=== PATIENT | female | born 1955 | race Caucasian/White ===

== ENCOUNTER 2021-06-11 13:17 | Emergency (ER) | payer OTHER ==
[2021-06-11 14:11] VITALS: TEMP 97.7; BMI 25.0
[2021-06-11 16:54] LABS: BASO % 1.1 % (0-2.0); EOS % 1.9 % (0-4.5); HEMATOCRIT 41.7 % (32.4-45.2); HEMOGLOBIN 13.8 GM/dL (10.7-15.3); LYMPH % 37.3 % (8-40); MCH 30.9 pg (25.7-33.7); MEAN CELL VOLUME 93.8 fl (80-96); MEAN PLT VOLUME 7.4 fl (7.5-11.1); MONO % 15.7 % (3.8-10.2); PLATELET COUNT 256 10^3/uL (134-434); RBC 4.45 M/mm3 (3.60-5.2); RDW 13.2 % (11.6-15.6); WHITE BLOOD COUNT 3.8 K/mm3 (4.0-10.0)
[2021-06-11 17:18] LABS: INR 0.95 (0.83-1.09); PROTHROMBIN TIME (PATIENT) 10.9 SEC (9.7-13.0)
[2021-06-11 17:20] LABS: BLOOD UREA NITROGEN 20.5 mg/dL (7-18)
[2021-06-11 17:21] LABS: ACTIVATED PTT 28.5 SECONDS (25.2-36.5); MAGNESIUM 3.1 mg/dL (1.8-2.4)
[2021-06-11 17:24] LABS: CREATININE 0.6 mg/dL (0.55-1.3)
[2021-06-11 17:25] LABS: BILIRUBIN,TOTAL 0.7 mg/dL (0.2-1); TOT PROT 7.6 g/dl (6.4-8.2)
[2021-06-11 21:37] VITALS: BP 140/77; PULSE 79
== END 2021-06-11 21:38 | disposition home or self-care (01) ==
LOC: JER 13:17 → JERFT 13:17 → JER 21:38
DX: R13.19 Other dysphagia (principal)
CPT/HCPCS: 36415; 71046-TC-FY; 71260-TC; 74177-TC; 80053; 83690; 83735; 84484; 85025; 85610; 85730; 93005; 93010; 93971-TC; 99285-25; Q9967